=== PATIENT | female | born 1970 | race Caucasian/White ===

== ENCOUNTER → 2017-03-04 | Outpatient (CLI) | payer OTHER ==
[~2017-03-04] MED LIST: AZELAIC ACID TOP; BENICAR20 MG PO; CENTRUM COMPLE1 EACH PO; CINNAMON500 MG PO; CYMBALTA60 MG PO; ESTER-C 1,0001 EACH PO; GLUCOPHAGE1000 MG PO; LANTUS100 UNIT/1; LEVAQUIN250 MG PO; METROGEL55 GM TOP; OSCAL + D500 MG PO; PRAVACHOL40 MG PO; PROVENTIL OR V6.7 GM INH; RELPAX40 MG PO; SINGULAIR10 MG PO; TYLENOL325 MG PO; ULORIC40 MG PO; ULTRAM50 MG PO; VICTOZA; VOLTAREN50 MG TOP; [UNRECOGNIZED DRUG - OTHER] NOSE
== END | disposition disaster alternative care site (69) ==
LOC: GBCOE 01-12 15:00
DX: Z12.31 Encounter for screening mammogram for malignant neoplasm of breast (principal)
CPT/HCPCS: G0202